=== PATIENT | male | born 1970 | race Caucasian/White ===

== ENCOUNTER 2020-01-31 16:52 | Emergency (ER) | payer OTHER ==
[~2020-01-31] VITALS: Ht 182.9 cm; Wt 68.0 kg
[~2020-01-31 16:52] MED LIST: COZAAR 50 MG TA50 M2 PO; FLOMAX0.4 MG PO; METOPROLOL SUCC50 MG PO; OLEPTRO ER150 M1 PO; RESTORIL30 MG PO; TRAMADOL 50 MG50 MG PO; VALIUM5 MG PO; ZORVOLEX35 MG PO
[2020-01-31] MEDS ORDERED: CYCLOBENZAPRINE10 MG PO (17:17)
[2020-01-31 17:30] LABS: BASOPHILS 0.8 % (0.0-2.0); EOSINOPHILS 0.4 % (0.0-3.0); HEMATOCRIT 39.3 % (42.0-52.0); HEMOGLOBIN 13.4 gm/dL (14.0-18.0); LYMPHOCYTES 59.9 % (24.0-44.0); MCH 29.9 pg (26.0-34.0); MONOCYTES 9.8 % (1.0-8.0); PLATELET COUNT 117 thou/uL (150-400); POLYS 29.1 % (36.0-66.0); RBC 4.47 mil/uL (4.50-6.00); RDW 13.1 % (10.5-14.5); WBC 3.5 thou/uL (4.0-11.0)
[2020-01-31 17:36] LABS: ANION GAP 9 mmol/L (7-16); BUN 9 mg/dL (7-18); CALCIUM 8.6 mg/dL (8.5-10.1); CHLORIDE 101 mmol/L (98-107); CO2 26 mmol/L (21-32); CREATININE 1.1 mg/dL (0.7-1.3); GLUCOSE 105 mg/dL (74-106); POTASSIUM 3.7 mmol/L (3.5-5.1); SODIUM 136 mmol/L (136-145)
[2020-01-31 17:46] LABS: ALBUMIN 3.3 g/dL (3.4-5.0); SGOT 23 U/L (15-37); SGPT 17 U/L (30-65); TOTAL BILIRUBIN 0.3 mg/dL (<0.1-1.0); TROPONIN-I <0.06 ng/mL (<0.06)
[2020-01-31] MEDS ORDERED: PROAIR HFA8.5 GM INH (18:11)
[2020-01-31] MEDS ORDERED: PROMETH-CODEIN 65 ML PO (18:11)
[2020-01-31 18:21] VITALS: BP 135/87
== END 2020-01-31 18:27 | disposition home or self-care (01) ==
LOC: ER 16:52
PROVIDERS: Physician Assistant
DX: R05 Cough (principal); R06.02 Shortness of breath; R50.9 Fever, unspecified; M79.10 Myalgia, unspecified site; I10 Essential (primary) hypertension; Z79.899 Other long term (current) drug therapy; Z88.0 Allergy status to penicillin; Z88.4 Allergy status to anesthetic agent; Z88.1 Allergy status to other antibiotic agents